=== PATIENT | male | born 1970 | race Two or more races ===

== ENCOUNTER 2025-07-20 09:47 | Emergency (ER) | payer OTHER ==
[~2025-07-20] VITALS: Ht 170.2 cm; Wt 77.1 kg
[2025-07-20] MEDS ORDERED: PRAVASTATIN SOD20 MG PO (10:07)
[2025-07-20] MEDS ORDERED: TELMISARTAN-AM1 EAC1 PO (10:10)
[2025-07-20] MEDS ORDERED: SODIUM CHLORIDE 0.45 % 1,000 ML IV STA (10:18)
[2025-07-20 11:02] LABS: BASO % 0.6 % (0.1-1.2); EOS # 0.04 (0.04-0.54); EOS % 0.6 % (0.7-7.0); LYMPH # 1.42 (1.18-3.74); LYMPH % 19.8 % (19.3-53.1); MEAN PLATELET VOLUME 9.00 fl (9.4-12.4); MONO # 0.54 (0.24-0.82); MONO % 7.5 % (4.7-12.5); NEUT # 5.11 (1.56-6.13); NEUT % 71.2 % (34.0-71.1); RED CELL DISTRIBUTION WIDTH 11.9 % (11.6-14.4)
[2025-07-20 11:19] LABS: D DIMER < 0.19 MG/L
[2025-07-20 11:25] LABS: ALT/SGPT 27.0 U/L (12-78); AST/SGOT 20.0 U/L (15-37); BILIRUBIN TOTAL 0.96 mg/dL (0.3-1.2); BUN CREA RATIO 12.0 (7.0-25.0); CREATININE SERUM 1.13 mg/dL (0.70-1.30); GFR 68.14; GLOBULINA 3.4 G/DL (2.4-3.5); GLUCOSE FASTING 102.0 mg/dL (65-100); OSMOLALITY SERUM 282.0 MOSM/KG (275-295)
[2025-07-20 13:06] LABS: INR 1.04
== END 2025-07-20 13:43 | disposition home or self-care (01) ==
LOC: ER 09:47
PROVIDERS: General Practice
DX: R07.89 Other chest pain (principal)